=== PATIENT | male | born 1960 | race Caucasian/White ===

== ENCOUNTER 2019-01-21 08:50 | Day surgery (SDC) | payer BC ==
[~2019-01-21] VITALS: Ht 157.5 cm; Wt 77.1 kg
[~2019-01-21 08:50] MED LIST: AMLODIPINE5 MG PO; AMOXICILLIN/CL875 MG PO; ASPIRIN EC81 MG PO; ATORVASTATIN CA40 MG PO; AUGMENTIN875TAB OR; AUGMENTIN875TAB PO; BACTROBAN2 % EX; CIPROFLOXACN250 MG PO; CLONIDINE0.1 MG PO; DAPSONE100 MG OR; DILAUDID 2MG2 MG/TA1 PO; FLONASE NASAL50 MCG; LISINOP/HCTZ1 TA1 PO; LISINOP/HCTZ1 TAB PO; LISINOPRIL10 MG PO; LORTAB 5-325 MG1 TAB PO; LOSARTAN POT25 MG PO; MAALOX/BEN PO; METOPROL TAR25 MG PO; MUCINEX600 MG PO; TORADOL PO; VIAGRA50 MG PO; ZOFRAN ODT4 MG SL
[2019-01-21] MEDS ORDERED: OMEPRAZOLE20 MG PO (10:38)
[2019-01-21 10:54] VITALS: BP 118/69
== END 2019-01-21 11:05 | disposition home or self-care (01) | DRG 392 ==
LOC: ENDO 08:50 → ORM 10:40 → ENDO 11:05
PROVIDERS: ATTEND Surgery
PROC: 0DB98ZX Excision of Duodenum, Via Natural or Artificial Opening Endoscopic, Diagnostic (ICD-10-PCS; principal; 2019-01-21)
PROC: 0DB78ZX Excision of Stomach, Pylorus, Via Natural or Artificial Opening Endoscopic, Diagnostic (ICD-10-PCS; 2019-01-21)
PROC: 0DB48ZX Excision of Esophagogastric Junction, Via Natural or Artificial Opening Endoscopic, Diagnostic (ICD-10-PCS; 2019-01-21)
PROC: 0DBF8ZX Excision of Right Large Intestine, Via Natural or Artificial Opening Endoscopic, Diagnostic (ICD-10-PCS; 2019-01-21)
DX: K29.80 Duodenitis without bleeding (principal); K29.70 Gastritis, unspecified, without bleeding; Q40.8 Other specified congenital malformations of upper alimentary tract; K44.9 Diaphragmatic hernia without obstruction or gangrene; Z12.11 Encounter for screening for malignant neoplasm of colon; K63.5 Polyp of colon; I10 Essential (primary) hypertension; Z80.0 Family history of malignant neoplasm of digestive organs; Z83.79 Family history of other diseases of the digestive system; Z86.010 Personal history of colon polyps